=== PATIENT | female | born 1955 | race Two or more races ===

== ENCOUNTER 2024-01-28 11:00 | Emergency (ER) | payer OTHER ==
[~2024-01-28] VITALS: Ht 167.6 cm; Wt 76.2 kg
[2024-01-28] MEDS ORDERED: LIPITOR40 M1 PO (12:09)
[2024-01-28] MEDS ORDERED: SYNTHROID75 MCG PO (12:09)
[2024-01-28] MEDS ORDERED: LEVO-T100 MCG PO (14:35)
[2024-01-28] MEDS ORDERED: LIPITOR20 MG PO (14:35)
[2024-01-28] MEDS ORDERED: ZESTRIL20 MG PO (14:35)
== END 2024-01-28 15:05 | disposition home or self-care (01) ==
LOC: ER 11:00
DX: I10 Essential (primary) hypertension (principal); E03.8 Other specified hypothyroidism

== ENCOUNTER 2024-02-10 12:13 | Emergency (ER) | payer OTHER ==
[~2024-02-10] VITALS: Ht 167.6 cm; Wt 74.8 kg
[~2024-02-10 12:13] MED LIST: LEVO-T100 MCG PO; LIPITOR20 MG PO; LIPITOR40 M1 PO; SYNTHROID75 MCG PO; ZESTRIL20 MG PO
[2024-02-10 14:05] LABS: HEMATOCRIT 32.6 % (36.0-45.00); HEMOGLOBIN 11.4 g/dL (12.0-15.00); MEAN CELL VOLUME 104.5 fL (80.00-100.00); MEAN CORPUSCULAR HEMOGLOBIN 36.4 pg (27.00-32.0); MEAN CORPUSCULAR HGB CONC 34.8 g/dl (32.0-36.0); PLATELET COUNT 333 K/uL (150-450); RED BLOOD COUNT 3.12 M/uL (4.00-6.00); RED CELL DISTRIBUTION WIDTH 15.4 % (11.5-14.5)
[2024-02-10 14:23] LABS: CALCIUM 9.5 mg/dL (8.5-10.1); CREATININE SERUM 0.87 mg/dL (0.55-1.02); GFR 64.37; POTASSIUM 3.57 mEq/L (3.5-5.1)
[2024-02-10 15:01] LABS: PH,URINE 6.5 (5.0-8.0); URINE APPEARANCE Clear; URINE BILIRRUBIN Negative (NEGATIVE); URINE BLOOD Negative; URINE COLOR Yellow; URINE GLUCOSE Negative (NEGATIVE); URINE KETONE Negative (NEGATIVE); URINE LEUKOCYTE Negative; URINE NITRATE Negative; URINE PROTEIN Trace (NEGATIVE)
[2024-02-10 15:05] LABS: URINE BACTERIA 117.1 uL (0.0-1933); URINE EPITHELIAL CELLS 10.1 uL (0.0-38.8); URINE RBC 7.6 uL (0.0-20.8); URINE WBC 11.8 uL (0.0-23.2)
[2024-02-10 15:53] LABS: URINE CAST 0.61 uL (0.0-1.40)
== END 2024-02-10 16:31 | disposition home or self-care (01) ==
LOC: ER 12:14
PROVIDERS: General Practice
DX: R30.0 Dysuria (principal); I10 Essential (primary) hypertension